=== PATIENT | female | born 1960 | race Caucasian/White ===

== ENCOUNTER → 2017-04-30 | Outpatient (CLI) | payer OTHER | LOC: C.PAPS 16:16 | PROVIDERS: ATTEND Obstetrics & Gynecology | DX: Z12.4 Encounter for screening for malignant neoplasm of cervix (principal); N95.2 Postmenopausal atrophic vaginitis ==

== ENCOUNTER → 2017-07-29 | Outpatient (CLI) | payer OTHER ==
--- NOTE | 2017-07-30 08:11 | MAMMOGRAPHY REPORT ---
BILATERAL DIGITAL SCREENING MAMMOGRAM TOMOSYNTHESIS WITH CAD: 07/29/2017 CLINICAL HISTORY: Routine screening. Patient has no complaints. TECHNIQUE: Breast tomosynthesis in addition to standard 2D mammography was performed. Current study was also evaluated with a Computer Aided Detection (CAD) system. COMPARISON: Comparison is made to exams dated: 08/28/2011 mammogram, 02/27/2011 mammogram, 08/28/2010 mammogram, 08/22/2010 mammogram - [facility], 08/17/2009, and 02/12/2008. BREAST COMPOSITION: The tissue of both breasts is extremely dense, which lowers the sensitivity of m ammography. FINDINGS: The parenchymal pattern is similar to prior mammograms. There are scattered stable benign -appearing calcifications bilaterally. No developing mass, architectural distortion or cluster of alvarado spicious microcalcifications is seen in either breast. IMPRESSION: ACR BI-RADS CATEGORY 2: BENIGN There is no mammographic evidence of malignancy. A 1 year screening mammogram is recommended. The pa tient will receive written notification of the results. Approximately 10% of breast cancers are not detected with mammography. A negative mammographic report should not delay biopsy if a clinically suggestive mass is present. Emma Kearney M.D. ay/:07/29/2017 16:54:59 Rf Technician: Inocencia Mcdonald, M, [facility] letter sent: Normal 1/2 BI-RADS Code: ACR BI-RADS Category 2: Benign
== END | disposition home or self-care (01) ==
LOC: C.MAMM 13:09
PROVIDERS: ATTEND Obstetrics & Gynecology
DX: Z12.31 Encounter for screening mammogram for malignant neoplasm of breast (principal)

== ENCOUNTER → 2018-03-03 | Outpatient (CLI) | payer OTHER ==
[~2018-03-03] MED LIST: ASCA500 PO; CALC600T9 PO; CHOL1000 PO; OMEG10007 PO; TURM1CAP4 PO
--- NOTE | 2018-03-03 12:36 | DIAGNOSTIC IMAGING REPORT ---
L FOOT MIN 3 VIEWS ROUTINE CLINICAL HISTORY: L FOOT PAIN pain. Trauma. COMPARISON: None. DISCUSSION: Nondisplaced oblique fracture proximal phalanx fifth toe. Localized soft tissue edema. Remaining osseous structures are unremarkable. No evidence for dislocation. IMPRESSION: Nondisplaced oblique fracture proximal phalanx left fifth toe. Localized soft tissue edema. The above report was generated using voice recognition software. It may contain grammatical, syntax or spelling errors. Electronically signed by: Andrés Roy M.D. 03/03/2018 12:35 PM Dictated Date/Time: 03/03/2018 12:33 PM
== END | disposition home or self-care (01) ==
LOC: C.RAD1850 11:44
PROVIDERS: ATTEND Family Medicine Hospice and Palliative Medicine
DX: S92.515A Nondisplaced fracture of proximal phalanx of left lesser toe(s), initial encounter for closed fracture (principal); X58.XXXA Exposure to other specified factors, initial encounter

== ENCOUNTER → 2018-07-02 | Outpatient (CLI) | payer OTHER | END | disposition home or self-care (01) | LOC: C.PAPS 18:16 | PROVIDERS: ATTEND Obstetrics & Gynecology | DX: Z12.4 Encounter for screening for malignant neoplasm of cervix (principal) ==